=== PATIENT | female | born 1965 | race Caucasian/White ===

== ENCOUNTER 2019-03-30 18:33 | Emergency (ER) | payer OTHER ==
[~2019-03-30] VITALS: Ht 160 cm; Wt 68.0 kg
[2019-03-30] MEDS ORDERED: FORTAMET1000 MG (19:17)
[2019-03-30] MEDS ORDERED: LANTUS SOL100 UNIT/1 (19:18)
== END 2019-03-30 20:49 | disposition home or self-care (01) ==
LOC: ER 18:33
DX: S46.811A Strain of other muscles, fascia and tendons at shoulder and upper arm level, right arm, initial encounter (principal); M75.81 Other shoulder lesions, right shoulder; X50.0XXA Overexertion from strenuous movement or load, initial encounter; Y93.89 Activity, other specified; Y92.89 Other specified places as the place of occurrence of the external cause; Y99.8 Other external cause status